=== PATIENT | female | born 1995 | race Caucasian/White ===

== ENCOUNTER 2016-10-10 15:42 | Emergency (ER) | payer OTHER ==
[2016-10-10 16:13] VITALS: BP 124/77
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
== END 2016-10-10 16:55 | disposition home or self-care (01) ==
LOC: ER 15:42
DX: S80.10XA Contusion of unspecified lower leg, initial encounter (principal); F17.210 Nicotine dependence, cigarettes, uncomplicated; V87.7XXA Person injured in collision between other specified motor vehicles (traffic), initial encounter
CPT/HCPCS: 99283